=== PATIENT | female | born 1950 | race Two or more races ===

== ENCOUNTER 2023-04-03 14:19 | Emergency (ER) | payer MEDICARE, BC ==
[~2023-04-03] VITALS: Ht 162.6 cm; Wt 52.2 kg
[2023-04-03] MEDS ORDERED: GABA600T12 PO (14:43)
[2023-04-03] MEDS ORDERED: GABA-536 PO (14:43)
[2023-04-03] MEDS ORDERED: IBUP-1955 PO (15:42)
[2023-04-03] MEDS ORDERED: CEPH500C2 PO (15:42)
[2023-04-03 16:28] VITALS: BP 132/71; O2SAT 100
== END 2023-04-03 16:30 | disposition home or self-care (01) ==
LOC: ER 14:19
DX: L03.116 Cellulitis of left lower limb (principal); Z79.899 Other long term (current) drug therapy
CPT/HCPCS: 73630; A4606; A4663